=== PATIENT | female | born 2005 | race African-American/Black ===

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

== ENCOUNTER 2023-03-01 17:41 | Emergency (ER) | payer MEDICAID | END 2023-03-01 19:55 | disposition home or self-care (01) | LOC: JD.ED 17:41 | DX: J06.9 Acute upper respiratory infection, unspecified (principal); B97.89 Other viral agents as the cause of diseases classified elsewhere | CPT/HCPCS: 87651-QW; 99283 ==

== ENCOUNTER 2023-03-03 20:36 | Emergency (ER) | payer MEDICAID ==
[2023-03-03] MEDS ORDERED: Ibuprofen 600 MG Tab PO ONE (21:03)
[2023-03-03 21:05] LABS: BASOPHILS ABSOLUTE AUTO 0.04 K/mm3 (0.01-0.08); BASOPHILS PERCENT AUTO 0.6 % (0.1-1.2); EOSINOPHILS ABSOLUTE AUTO 0.17 K/mm3 (0.04-0.36); EOSINOPHILS PERCENT AUTO 2.5 (0.7-5.8); HEMATOCRIT 41.8 % (34.1-44.9); HEMOGLOBIN 13.4 gm/dl (11.2-15.7); LYMPHOCYTES ABSOLUTE AUTO 2.73 K/mm3 (1.18-3.74); MEAN CORPUSCULAR HEMOGLOBIN 27.1 pg (25.6-32.2); MEAN CORPUSCULAR HGB CONC 32.1 g/dl (32.2-35.5); MEAN CORPUSCULAR VOLUME 84.4 fl (79.4-94.8); MEAN PLATELET VOLUME 9.2 fl (9.4-12.3); MONOCYTES ABSOLUTE AUTO 0.48 K/mm3 (0.24-0.36); NEUTROPHILS ABSOLUTE AUTO 3.41 K/mm3 (1.56-6.13); NEUTROPHILS PERCENT AUTO 49.9 % (34.0-71.1); PLATELET COUNT,PLT 334 K/mm3 (182-369); RED BLOOD CELL COUNT 4.95 M/mm3 (3.98-5.22); WHITE BLOOD CELL COUNT,WBC 6.83 K/mm3 (3.98-10.04)
[2023-03-03 21:09] LABS: APPEARANCE,URINE CLEAR (Clear); BILIRUBIN,URINE NEGATIVE (Negative); COLOR,URINE YELLOW (Yellow); GLUCOSE,URINE NEGATIVE (Negative); KETONES,URINE NEGATIVE (Negative); LEUKOCYTE ESTERASE,URINE NEGATIVE (Negative); NITRITE,URINE NEGATIVE (Negative); OCCULT BLOOD,URINE 2+ (Negative); PROTEIN,URINE 1+ (Negative); UROBILINOGEN,URINE 0.2 (0.2-1.0)
[2023-03-03 21:21] LABS: BACTERIA,URINE FEW /hpf (FEW); MUCUS,URINE MODERATE /hpf (FEW); SQUAMOUS EPITHELIAL CELLS,UR 0-5 /hpf (0-5); WBC,URINE 0-5 /hpf (0-5)
== END 2023-03-03 22:10 | disposition home or self-care (01) ==
LOC: JD.ED 20:36
DX: N93.9 Abnormal uterine and vaginal bleeding, unspecified (principal)
CPT/HCPCS: 36415; 81001; 84703; 85025; 99284; A9270

== ENCOUNTER 2023-10-23 23:20 | Emergency (ER) | payer SELFPAY ==
[2023-10-23 23:38] LABS: APPEARANCE,URINE CLEAR (Clear); BILIRUBIN,URINE NEGATIVE (Negative); COLOR,URINE YELLOW (Yellow); GLUCOSE,URINE NEGATIVE (Negative); KETONES,URINE NEGATIVE (Negative); LEUKOCYTE ESTERASE,URINE NEGATIVE (Negative); NITRITE,URINE NEGATIVE (Negative); OCCULT BLOOD,URINE NEGATIVE (Negative); PH,URINE 5.5 (5.0-8.0); PROTEIN,URINE TRACE (Negative); UROBILINOGEN,URINE 0.2 (0.2-1.0)
[2023-10-23 23:51] LABS: BACTERIA,URINE MODERATE /hpf (FEW); EPITHELIAL CELLS,URINE 0-5 /hpf (0-5); MUCUS,URINE FEW /hpf (FEW); RBC,URINE 0-5 /hpf (0-5)
[2023-10-24] MEDS ORDERED: Cephalexin 500 MG Cap PO ONE (00:03)
== END 2023-10-24 00:15 | disposition home or self-care (01) ==
LOC: JD.ED 23:20
DX: N39.0 Urinary tract infection, site not specified (principal); B96.89 Other specified bacterial agents as the cause of diseases classified elsewhere
CPT/HCPCS: 81001; 81025; 99283; A9270